=== PATIENT | male | born 1950 | race Caucasian/White ===

== ENCOUNTER 2023-12-09 08:39 | Day surgery (SDC) | payer BC, MEDICARE ==
[2023-12-09] MEDS: Sodium Chloride 0.9% 10 ML Syringe FLUSH PRN (08:58)
[2023-12-09 09:38] VITALS: BP 161/94; PULSE 69
== END 2023-12-09 09:41 | disposition home or self-care (01) ==
LOC: JP.SDS 08:39
PROVIDERS: ATTEND Ophthalmology
DX: H26.9 Unspecified cataract (principal)
CPT/HCPCS: J3490; V2632

== ENCOUNTER 2024-01-27 06:00 | Day surgery (SDC) | payer MEDICARE ==
[2024-01-27] MEDS: Sodium Chloride 0.9% 10 ML Syringe FLUSH PRN (06:36)
[2024-01-27 07:42] VITALS: BP 124/88; PULSE 56
== END 2024-01-27 08:05 | disposition home or self-care (01) ==
LOC: JP.SDS 06:00
PROVIDERS: ATTEND Ophthalmology
DX: H25.812 Combined forms of age-related cataract, left eye (principal)
CPT/HCPCS: 66984; J3490; V2632